=== PATIENT | female | born 1950 | race Caucasian/White ===

== ENCOUNTER 2016-12-02 10:11 | Day surgery (SDC) | payer MEDICARE, OTHER ==
[2016-11-28 12:34] LABS: BASOPHILS 0.8 %; BASOPHILS ABSOLUTE 0.04 10/3/uL (0.0-0.16); EOSINOPHILS 2.4 %; EOSINOPHILS ABSOLUTE 0.12 10/3/uL (0.0-0.53); IMMATURE GRANULOCYTES 0.2 %; IMMATURE GRANULOCYTES ABSOLUTE 0.01 10/3/uL (0.0-0.11); LYMPHOCYTES 38.1 %; LYMPHOCYTES ABSOLUTE 1.87 10/3/uL (0.67-4.30); MEAN CORPUS HGB CONC 33.3 g/dL (32.0-36.0); MEAN CORPUSCULAR HEMOGLOB 29.7 pg (26.0-34.0); MEAN CORPUSCULAR VOLUME 89.2 fL (80-100); MEAN PLATELET VOLUME 8.7 fL (9.2-13.0); MONOCYTES 8.1 %; NEUTROPHILS 50.4 %; NEUTROPHILS ABSOLUTE 2.47 10/3/uL (2.02-8.40); PLATELET COUNT 264 10/3/uL (150-400); RBC DISTRIBUTION WIDTH 12.4 % (12.0-16.0); RED CELL COUNT 4.37 10/6/uL (4.0-5.6); WHITE BLOOD CELLS 4.9 10/3/uL (4.5-10.5)
[2016-11-28 12:36] LABS: MANUAL DIFF NO %
[2016-11-28 13:05] LABS: PARTIAL THROMBO TIME 29.5 SEC (22.5-37.2); PROTIME (NOT ORD) 12.9 SEC (12.0-14.5)
[2016-11-28 13:06] LABS: PFA (COL/EPI) 118 SEC (72-180)
--- NOTE | ~2016-12-02 | OP ---
Record Of Operation [facility] [place] [address] [place]. [address] NAME: PATRICIA ESQUIVEL : 48 STATUS : [facility]#: [id number] AGE: 66 ADM/REG DATE : 12/02/16 MR#: [id number] REPORT SERV DATE: 12/03/16 DICTATED BY: MATHEW WOODY DATE: 12/03/16 REPORT STATUS : Draft TRANSCRIBED BY: KHALIF DATE: 12/03/16 DATE OF PROCEDURE: 12/02/2016 PREOPERATIVE DIAGNOSIS: Surgical absence of the right breast. POSTOPERATIVE DIAGNOSIS: Surgical absence of the right breast. PROCEDURE: Tissue line crew supervisor exchanged to definitive silicone implant. INDICATIONS AND FINDINGS OF THE PROCEDURE: This 66-year-old female has undergone a complex right breast reconstruction. She is now appropriate for exchange of her tissue line crew supervisor to a definitive silicone implant. DETAILS OF THE PROCEDURE: The patient was brought to the operating room. After adequate sedation was achieved, she was prepped and draped in usual sterile fashion for the above- described procedure. A 5 cm incision was made then just above her inframammary crease and dissection was carried down to the level of the implant. The implant was subsequently ruptured and removed. A controlled superior capsulotomy was then carried out. She was thoroughly irrigated with Hibiclens solution, and inferior drain was then placed and then a 495 MH implant was placed into the site over the 10-Czech drain. This was manipulated into an appropriate position and the wounds were then closed in multiple layers of Vicryl and Monocryl through to an intracuticular in the skin. She was cleansed with peroxide. Dry dressing was placed. She was remanded to the recovery room in stable condition. All sponge and needle counts were correct. EDI/KHALIF Mathew Woody M.D. / [id number] CC: Kaur Musa M.D.
[~2016-12-02 10:11] MED LIST: DIGESTIVE ADVANTAGE PO; FLONASE NAS; LOFIBRA54 MG PO; NEXIUM40 PO; PROAIR HFA INH; SYMBICORT 80/4.1 INH INH; SYN.025B PO; VIMPAT100 MG PO; VITD PO; VYTORIN 10/40 T1 TAB PO
== END 2016-12-02 15:27 | disposition home or self-care (01) ==
LOC: SDC 10:11
PROVIDERS: Surgery Surgery of the Hand
PROC: 0HUT0JZ Supplement Right Breast with Synthetic Substitute, Open Approach (ICD-10-PCS; principal; 2016-12-02 12:15)
DX: Z45.811 Encounter for adjustment or removal of right breast implant (principal); Z88.0 Allergy status to penicillin; Z88.1 Allergy status to other antibiotic agents; Z91.040 Latex allergy status; Z85.3 Personal history of malignant neoplasm of breast; Z85.89 Personal history of malignant neoplasm of other organs and systems; Z90.49 Acquired absence of other specified parts of digestive tract; Z90.710 Acquired absence of both cervix and uterus; M19.90 Unspecified osteoarthritis, unspecified site; Z90.89 Acquired absence of other organs; K21.9 Gastro-esophageal reflux disease without esophagitis; M72.2 Plantar fascial fibromatosis; G40.909 Epilepsy, unspecified, not intractable, without status epilepticus; Z98.41 Cataract extraction status, right eye; Z98.42 Cataract extraction status, left eye; Z96.1 Presence of intraocular lens; E78.00 Pure hypercholesterolemia, unspecified
CPT/HCPCS: 85025; 85576; 85610; 85730; 93005; A9270-GY; C1769; C1789; J0690; J1885; J2250; J2405; J3010